=== PATIENT | male | born 1960 | race Caucasian/White ===

== ENCOUNTER 2019-09-25 13:39 | Emergency (ER) | payer OTHER ==
[~2019-09-25] VITALS: Ht 175.3 cm; Wt 65.8 kg
[2019-09-25] MEDS ORDERED: ZYRTEC10 MG PO (15:19)
[2019-09-25 15:30] VITALS: BP 117/83
== END 2019-09-25 15:30 | disposition home or self-care (01) ==
LOC: ER 13:39
DX: R05 Cough (principal); R06.02 Shortness of breath; R50.9 Fever, unspecified; H57.89 Other specified disorders of eye and adnexa; F17.210 Nicotine dependence, cigarettes, uncomplicated; Z03.818 Encounter for observation for suspected exposure to other biological agents ruled out